=== PATIENT | female | born 1935 | race Two or more races ===

== ENCOUNTER 2017-08-25 20:41 | Inpatient (IN) | payer MEDICAID ==
[~2017-08-25] VITALS: Ht 137.2 cm; Wt 68.9 kg
--- NOTE | 2017-08-25 20:42 | NUR ---
TO BED 3 BIB PARAMEDICS C/O INTERMITTENT CP X1 WEEK, SYNCOPAL EPISODE TODAY WITNESS BY DAUGHTER. PT AAOX4 NO ACUTE DISTRESS NOTED, RESP EVEN AND UNLABORED. PLACE PT ON CARDIAC MONITORING, CONTINUOUS POX, O2@2L/NC. PENDING ER MD DIAS. 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 PENDING ER MD DIAS.
--- NOTE | 2017-08-25 20:46 | NUR ---
ER MD AT BEDSIDE TO EVAL PT WITH ORDERS RECEIVED.
[2017-08-25] MEDS ORDERED: NITROGLYCERIN PACKET 1 GM PACKET TD ONE (21:00)
[2017-08-25] MEDS ORDERED: ASPIRIN 325 MG TABLET PO ONE (21:00)
[2017-08-25] MEDS ORDERED: ASPIRIN 325 MG TABLET ONE (21:02)
[2017-08-25] MEDS ORDERED: NITROGLYCERIN PACKET 1 GM PACKET ONE (21:02)
--- NOTE | 2017-08-25 21:04 | NUR ---
PT MEDICATED ORDERED. DIRECTOR CORPORATE COMPLIANCE AT BEDSIDE FOR BLOOD DRAW.
--- NOTE | 2017-08-25 21:06 | NUR ---
PT DAUGHTER AT BEDSIDE.
[2017-08-25 21:12] LABS: BASOPHILS % (AUTO) 0.3 % (0.0-2.0); EOSINOPHILS # (AUTO) 0.1 /CMM (0.0-0.7); EOSINOPHILS % (AUTO) 1.5 % (0.0-6.0); HEMATOCRIT 36 % (33-45); LYMPHOCYTES # (AUTO) 2.9 /CMM (0.8-4.8); LYMPHOCYTES % (AUTO) 38.1 % (20.0-44.0); MEAN CORPUSCULAR HEMOGLOBIN 30 PG (26.0-33.0); MEAN CORPUSCULAR HGB CONC 33 g/dl (31.0-36.0); MEAN CORPUSCULAR VOLUME 89 fL (82-100); MONOCYTES # (AUTO) 0.6 /CMM (0.1-1.30); MONOCYTES % (AUTO) 7.9 % (2.0-12.0); NEUTROPHILS % (AUTO) 52.2 % (43.0-81.0); PLATELET COUNT (AUTO) 382 /CMM (150-450); RED BLOOD CELL COUNT(AUTO) 4.02 MIL/uL (4.0-5.2); WHITE BLOOD COUNT (AUTO) 7.6 K/uL (4.3-11.0)
[2017-08-25 21:22] LABS: CALCIUM, SERUM 9.1 mg/dL (8.5-10.1); CARBON DIOXIDE 25 mmol/L (21-32); CHLORIDE 104 mmol/L (98-107); CREATININE 0.9 mg/dL (0.6-1.3); GLUCOSE 264 mg/dL (74-106); POTASSIUM 4.1 mmol/L (3.5-5.1); SODIUM SERUM 137 mmol/L (136-145); UREA NITROGEN, BLOOD 13 mg/dL (7-18)
[2017-08-25 21:27] LABS: INR 0.87 (0.87-1.13)
[2017-08-25 21:31] LABS: TROPONIN I < 0.017 ng/mL (0.00-0.056)
--- NOTE | 2017-08-25 21:36 | NUR ---
ER SPOKE TO [facility] REGARDING PT ADMISSION. WILL CALL FOR REPORT.
--- NOTE | 2017-08-25 21:40 | NUR ---
REPORT CALLED TO AREA MANAGERCELESTINE RASHID. WILL TRANSPORT PT VIA ACLS PROTOCOL.
[2017-08-25] MEDS ORDERED: GABA-534 PO (21:52)
[2017-08-25] MEDS ORDERED: FENO67CA PO (21:52)
[2017-08-25] MEDS ORDERED: GABA600T2 PO (21:52)
[2017-08-25] MEDS ORDERED: ATOR40TA PO (21:52)
[2017-08-25] MEDS ORDERED: NPH,100V SQ ×2 (21:52)
[2017-08-25] MEDS ORDERED: METO25TA6 PO (21:52)
[2017-08-25] MEDS ORDERED: LEVO25TA7 PO (21:52)
[2017-08-25] MEDS ORDERED: OMEP20TA68 PO (21:52)
[2017-08-25] MEDS ORDERED: BENA20TA2 PO (21:52)
[2017-08-25 22:00] VITALS: BP 144/71
--- NOTE | 2017-08-25 22:00 | NUR ---
RN ADMITTING NOTES Pt ARRIVED TO FLOOR VIA GURNEY. WAS ABLE TO AMBULATE FROM ER GURNEY TO ROOM BED WITH SOME ASSISTANCE. GAIT LOOKED STEADY, BUT WEAK. Pt SHOWED SOME SOB FROM THE EXERTION. PLACED ON 2L NC. NO OTHER S/S OF ACUTE DISTRESS NOTED. IV ACCESS LAC #20G, SL. SAFETY MEASURES IN PLACE. BED LOW, LOCKED, HOB ELEVATED, SIDE RAILS UP, CALL LIGHT AND BEDSIDE TABLE WITHIN REACH. WILL CONTINUE TO MONITOR Pt THROUGHOUT THE NIGHT FOR SAFETY.
[2017-08-25] MEDS ORDERED: MAGNESIUM HYDROXIDE 30 ML UDC PO PRN (22:30)
[2017-08-25] MEDS ORDERED: ACETAMINOPHEN 325 MG TABLET PO PRN (22:30)
[2017-08-25] MEDS ORDERED: ZOLPIDEM TARTRATE 5 MG TABLET PO PRN (22:30)
[2017-08-25] MEDS ORDERED: MAG HYDROX/AL HYDROX/SIMETH 30 ML UDC PO PRN (22:30)
[2017-08-25] MEDS ORDERED: HYDROCODONE/APAP 5/325MG 1 EACH TABLET PO PRN (22:30)
[2017-08-25] MEDS ORDERED: ONDANSETRON HCL/PF 4 MG/2 ML VIAL IVP PRN (22:30)
[2017-08-25] MEDS ORDERED: ENOXAPARIN SODIUM 30 MG/0.3 ML DISP.SYRIN SQ SCH (23:00)
[2017-08-25] MEDS ORDERED: DEXTROSE 50%-WATER 50 ML DISP.SYRIN IV PRN (23:00)
[2017-08-25] MEDS ORDERED: NITROGLYCERIN 0.4 MG/TAB BOTTLE SL PRN (23:00)
[2017-08-25] MEDS ORDERED: ENOXAPARIN SODIUM 30 MG/0.3 ML DISP.SYRIN ONE (23:55)
[2017-08-26 04:00] VITALS: BP 143/66
[2017-08-26] MEDS: BLOOD SUGAR DIAGNOSTIC 1 EACH STRIP IN SCH ×4 (06:18→21:22)
--- NOTE | 2017-08-26 06:22 | NUR ---
RN NOTES BG ACCUCHECK 146. NO INSULIN COVERAGE GIVEN AT THIS TIME DUE TO POSSIBLE STRESS TEST TODAY FOR CP DX. HAS BEEN NPO SINCE [place] TODAY.
--- NOTE | 2017-08-26 06:26 | NUR ---
RN CLOSING NOTES NO SIGNIFICANT CHANGES IN Pt's CONDITION. Pt REMAINS STABLE AT THIS TIME. NO S/S OF ACUTE DISTRESS OR SEVERE SOB NOTED DURING THE NIGHT. ALL NEEDS MET AND ATTENDED TO. SAFETY MEASURES IN PLACE. WILL ENDORSE TO DAYSHIFT RN FOR Pt's ROBERT. TELE READING SR Addendum: 08/26/17 at 0632 by SHERIF AGUILERA RN TELE READING SB 52/SR LOW 60's
[2017-08-26 06:42] LABS: HEMATOCRIT 36 % (33-45); HEMOGLOBIN 11.9 g/dL (11.5-14.8); MEAN CORPUSCULAR HEMOGLOBIN 30 PG (26.0-33.0); MEAN CORPUSCULAR HGB CONC 33 g/dl (31.0-36.0); MEAN CORPUSCULAR VOLUME 91 fL (82-100); RED BLOOD CELL COUNT(AUTO) 3.92 MIL/uL (4.0-5.2); WHITE BLOOD COUNT (AUTO) 7.8 K/uL (4.3-11.0)
[2017-08-26 06:43] LABS: BASOPHILS % (AUTO) 0.3 % (0.0-2.0); EOSINOPHILS # (AUTO) 0.1 /CMM (0.0-0.7); EOSINOPHILS % (AUTO) 1.8 % (0.0-6.0); LYMPHOCYTES # (AUTO) 2.7 /CMM (0.8-4.8); LYMPHOCYTES % (AUTO) 34.6 % (20.0-44.0); MONOCYTES # (AUTO) 0.5 /CMM (0.1-1.30); NEUTROPHILS # (AUTO) 4.4 /CMM (1.8-8.9); NEUTROPHILS % (AUTO) 57.3 % (43.0-81.0); PLATELET COUNT (AUTO) 371 /CMM (150-450); RDW COEFFICIENT OF VARIATION 14.9 (11.5-15.0)
[2017-08-26 07:08] LABS: CARBON DIOXIDE 26 mmol/L (21-32); CHLORIDE 106 mmol/L (98-107); CREATININE 0.7 mg/dL (0.6-1.3); GLUCOSE 140 mg/dL (74-106); MAGNESIUM 1.7 mg/dL (1.8-2.4); PHOSPHORUS 3.5 mg/dL (2.5-4.9); POTASSIUM 4.3 mmol/L (3.5-5.1); SODIUM SERUM 142 mmol/L (136-145); UREA NITROGEN, BLOOD 11 mg/dL (7-18)
--- NOTE | 2017-08-26 07:20 | NUR ---
RN notes Received pt awake,verbally responsive, on O2 via NC at 2l/min,no SOB noted. Denies any pain or discomfort at this time. Call light within reach. IV site LAC patent, intact, no redness, no infiltration noted.Will continue to monitor accordingly, Safety measures in place.
[2017-08-26 07:42] LABS: CHOLESTEROL 180 mg/dL (<200); HDL CHOLESTEROL 46 mg/dL (40-60); LDL 109 mg/dL (0-99); THYROID STIMULATING HORMONE 10.011 uIU/mL (0.358-3.74); TRIGLYCERIDES 152 mg/dL (30-150)
[2017-08-26 08:00] VITALS: BP 112/60
[2017-08-26] MEDS: ATORVASTATIN 40 MG TABLET PO SCH (08:29)
[2017-08-26] MEDS: ASPIRIN 81 MG TAB.CHEW PO SCH (08:31)
[2017-08-26] MEDS: METOPROLOL TARTRATE 25 MG TABLET PO SCH ×2 (08:40→17:00)
[2017-08-26] MEDS: BENAZEPRIL HCL 20 MG TABLET PO SCH (08:40)
[2017-08-26] MEDS: AMLODIPINE BESYLATE 10 MG TABLET PO SCH (08:40)
[2017-08-26 08:41] LABS: THYROID STIMULATING HORMONE 10.339 uIU/mL (0.358-3.74)
[2017-08-26] MEDS: INSULIN NPH, HUMAN ISOPHANE 100 UNIT/ML VIAL SQ SCH (08:41)
[2017-08-26] MEDS ORDERED: LEVOTHYROXINE SODIUM 25 MCG TABLET PO SCH (09:00)
[2017-08-26] MEDS ORDERED: REGADENOSON 0.4 MG/5 ML DISP.SYRIN IVP ONE (10:00)
[2017-08-26] MEDS: Fenofibrate 48 MG TABLET PO SCH (11:57)
[2017-08-26] MEDS: Magnesium 1GM/D5W 100ML PREMIX 100 ML IV SCH ×2 (13:39→15:17)
[2017-08-26] MEDS: INSULIN REGULAR, HUMAN 100 UNIT/ML 3 ML VIAL SQ PRN ×3 (13:57→21:21)
[2017-08-26 16:00] VITALS: BP 126/57
--- NOTE | 2017-08-26 17:00 | NUR ---
MS RN AT 1700 lOPRESSOR 25MG NOT ADMINISTERED -HR 54
[2017-08-26] MEDS ORDERED: INSULIN NPH, HUMAN ISOPHANE 100 UNIT/ML VIAL SQ SCH (18:00)
[2017-08-26] MEDS ORDERED: GABAPENTIN 300 MG CAPSULE PO SCH (18:00)
--- NOTE | 2017-08-26 18:56 | NUR ---
RN notes pt awake,verbally responsive, on O2 via NC at 2l/min,no SOB noted. Denies any pain or discomfort at this time. Call light within reach. IV site LAC patent, intact, no redness, no infiltration noted.Will continue to monitor accordingly,and endorse to next shift for continuity of care Safety measures in place.
--- NOTE | 2017-08-26 19:30 | NUR ---
RN OPENING NOTES PT AWAKE AND ORIENTED, FAMILY AT BEDSIDE. PT ON 2L O2 NASAL CANNULA. PT DENIES SOB OR PAIN. PT IV LAC 20G, INTACT AND PATENT. CALL LIGHT WITHIN REACH. WILL CONTINUE TO MONITOR.
[2017-08-26 20:00] VITALS: BP 149/71
[2017-08-26] MEDS ORDERED: ENOXAPARIN SODIUM 30 MG/0.3 ML DISP.SYRIN SQ SCH (21:00)
[2017-08-26] MEDS ORDERED: GABAPENTIN 400 MG CAPSULE PO SCH (22:00)
[2017-08-27 06:48] LABS: BASOPHILS % (AUTO) 0.3 % (0.0-2.0); EOSINOPHILS # (AUTO) 0.2 /CMM (0.0-0.7); EOSINOPHILS % (AUTO) 2.6 % (0.0-6.0); HEMATOCRIT 36 % (33-45); HEMOGLOBIN 12.3 g/dL (11.5-14.8); LYMPHOCYTES # (AUTO) 2.5 /CMM (0.8-4.8); LYMPHOCYTES % (AUTO) 36.5 % (20.0-44.0); MEAN CORPUSCULAR HEMOGLOBIN 30 PG (26.0-33.0); MEAN CORPUSCULAR HGB CONC 34 g/dl (31.0-36.0); MEAN CORPUSCULAR VOLUME 90 fL (82-100); MONOCYTES # (AUTO) 0.5 /CMM (0.1-1.30); NEUTROPHILS # (AUTO) 3.7 /CMM (1.8-8.9); NEUTROPHILS % (AUTO) 53.6 % (43.0-81.0); PLATELET COUNT (AUTO) 366 /CMM (150-450); RDW COEFFICIENT OF VARIATION 15.1 (11.5-15.0); RED BLOOD CELL COUNT(AUTO) 4.07 MIL/uL (4.0-5.2); WHITE BLOOD COUNT (AUTO) 6.9 K/uL (4.3-11.0)
--- NOTE | 2017-08-27 07:00 | NUR ---
RN CLOSING NOTES PT RESTING IN BED, NO APPARENT S/S OF PAIN OR DISTRESS. PT ABLE TO AMBULATE FROM BED TO BATHROOM WITH SOME ASSISTANCE. IV ACCESS LAC #20G, SL. SAFETY MEASURES IN PLACE. BED LOW, LOCKED, HOB ELEVATED, SIDE RAILS UP, CALL LIGHT AND BEDSIDE TABLE WITHIN REACH. WILL ENDORSE TO DAY RN FOR CONTINUITY OF CARE.
--- NOTE | 2017-08-27 07:00 | NUR ---
RN INITIAL NOTES: PATIENT RESTING IN BED. PATIENT ALERT ORIENTED X4. NONLABORED BREATHING NOTED ON 2 L NASAL CANNULA. PATIENT REPLIED WITH "ESTOY BEIN" WHEN ASKED ABOUT PAIN, DENIES PAIN AT THE MOMENT. IV SITE PATENT AND INTACT. BED IN LOWEST LOCKED POSITION.CALL LIGHT WITHIN REACH. WILL CONTINUE TO MONITOR
[2017-08-27] MEDS: INSULIN REGULAR, HUMAN 100 UNIT/ML 3 ML VIAL SQ PRN ×2 (07:07→12:29)
--- NOTE | 2017-08-27 07:07 | NUR ---
NO INSULIN GIVEN. PT BLOOD GLUCOSE 97MG/DL.
[2017-08-27 07:11] LABS: TROPONIN I < 0.017 ng/mL (0.00-0.056)
[2017-08-27 07:16] LABS: ALANINE AMINOTRANSFERASE 22 U/L (12-78); ALBUMIN 3.4 g/dL (3.4-5.0); ALKALINE PHOSPHATASE 67 U/L (46-116); ASPARTATE AMINOTRANSFERASE 19 U/L (15-37); BILIRUBIN,TOTAL 0.6 mg/dL (0.2-1.0); CALCIUM, SERUM 9.4 mg/dL (8.5-10.1); CARBON DIOXIDE 30 mmol/L (21-32); CHLORIDE 105 mmol/L (98-107); CREATININE 0.6 mg/dL (0.6-1.3); GLUCOSE 99 mg/dL (74-106); MAGNESIUM 1.9 mg/dL (1.8-2.4); PHOSPHORUS 4.1 mg/dL (2.5-4.9); POTASSIUM 4.3 mmol/L (3.5-5.1); SODIUM SERUM 142 mmol/L (136-145); TOTAL PROTEIN, SERUM 7.8 g/dL (6.4-8.2); UREA NITROGEN, BLOOD 10 mg/dL (7-18)
[2017-08-27] MEDS: BLOOD SUGAR DIAGNOSTIC 1 EACH STRIP IN SCH ×2 (07:38→12:32)
[2017-08-27 08:00] VITALS: BP 137/54
[2017-08-27] MEDS: ASPIRIN 81 MG TAB.CHEW PO SCH (08:38)
[2017-08-27] MEDS: Fenofibrate 48 MG TABLET PO SCH (08:41)
[2017-08-27] MEDS: ATORVASTATIN 40 MG TABLET PO SCH (08:42)
[2017-08-27] MEDS: METOPROLOL TARTRATE 25 MG TABLET PO SCH (08:50)
[2017-08-27] MEDS: AMLODIPINE BESYLATE 10 MG TABLET PO SCH (08:51)
[2017-08-27] MEDS: BENAZEPRIL HCL 20 MG TABLET PO SCH (08:51)
[2017-08-27] MEDS ORDERED: GABAPENTIN 300 MG CAPSULE PO SCH (09:00)
[2017-08-27] MEDS ORDERED: LEVOTHYROXINE SODIUM 25 MCG TABLET PO SCH (09:00)
[2017-08-27] MEDS: INSULIN NPH, HUMAN ISOPHANE 100 UNIT/ML VIAL SQ SCH (09:49)
--- NOTE | 2017-08-27 14:31 | NUR ---
RN NOTES: PATIENT AMBULATED AROUND THE UNIT, 1 LAP. NO SIGNS OF DISTRESS NOTED. NONLABORED BREATHING NOTED. SPO2 AT 95-98%. PATIENT DENIES CHEST PAIN. DENIES DIFFICULTY BREATHING. VITAL SIGNS WNL
[2017-08-27] MEDS ORDERED: ASPI81TA2 PO (15:09)
[2017-08-27 16:00] VITALS: BP 115/70
--- NOTE | 2017-08-27 16:50 | NUR ---
RN NOTES CLOSING: PATIENT DISCHARGED HOME PER MD ORDERS. PATIENT STABLE. VS WITHIN NORMAL RANGE. NONLABORED BREATHING ON ROOM AIR. SPO2 WNL. PATIENT EDUCATED ON MEDICATIONS, HOW TO CHECK BLOOD PRESSURE AND PULSE, EDUCATED ON FOLLOWING UP WITH THE PRIMARY CARE PROVIDER WITHIN 1 WEEK, AND EDUCATED ON CALLING 911 WHEN EXPERIENCING CHEST PAIN, STROKE, DIFFICULTY BREATHING. THIS WAS TRANSLATED BY GRANDDAUGHTER VIELKA. PATIENT VERBALIZED UNDERSTANDING AND RETURNED DEMONSTRATION. IV TAKEN OUT. FLU AND PNEUMOCOCCAL VACCINES NOT ADMINISTERED DUE TO PATIENT RECEIVING THEM IN JULY 2017 ACCORDING TO PATIENT. PATIENT'S BLOOD GLUCOSE ASSESSED PRIOR TO DISCHARGE, PATIENT STATED REFUSING ORDERED AC INSULIN BECAUSE SHE DOES NOT WANT TO EAT DINNER AT THE MOMENT.PATIENT LEFT AMBULATORY WITH GRANDDAUGHTER AND DAUGHTER.
== END 2017-08-27 18:57 | disposition home or self-care (01) | DRG 198 ==
LOC: ER 20:43 → TELE 21:13 → MED 08-26 10:23
PROVIDERS: ADMIT Nurse Practitioner Acute Care; ATTEND Nurse Practitioner Acute Care
DX: I25.10 Atherosclerotic heart disease of native coronary artery without angina pectoris (principal); E11.65 Type 2 diabetes mellitus with hyperglycemia; D64.9 Anemia, unspecified; E44.1 Mild protein-calorie malnutrition; I10 Essential (primary) hypertension; E78.5 Hyperlipidemia, unspecified; E03.9 Hypothyroidism, unspecified; K21.9 Gastro-esophageal reflux disease without esophagitis; Z79.4 Long term (current) use of insulin; E83.42 Hypomagnesemia; E66.01 Morbid (severe) obesity due to excess calories; M19.90 Unspecified osteoarthritis, unspecified site; Z79.899 Other long term (current) drug therapy; Z68.36 Body mass index [BMI] 36.0-36.9, adult; G47.33 Obstructive sleep apnea (adult) (pediatric)
CPT/HCPCS: 36415; 71010-TC; 80048-TC; 80053-TC; 80061-TC; 82306; 82728-TC; 82962-TC; 83540-TC; 83735-TC; 84100-TC; 84439-TC; 84443-TC; 84484-TC; 85025-TC; 85730-TC; 87081-TC; 93307-TC; 97116-TC; 97530-TC; A9502; J1650; J1815; J2785; J3475